=== PATIENT | male | born 1995 | race African-American/Black ===

== ENCOUNTER 2018-07-18 01:42 | Emergency (ER) | payer BC ==
[~2018-07-18] VITALS: Ht 180.3 cm; Wt 79.4 kg
[~2018-07-18 01:42] MED LIST: AMOX500C2 PO
[2018-07-18] MEDS ORDERED: PARO30TA3 (02:08)
[2018-07-18] MEDS ORDERED: LISI-556 PO (02:09)
[2018-07-18] MEDS ORDERED: LIDOCAINE 2% VISCOUS 15 ML UDC PO ONE (02:15)
[2018-07-18] MEDS ORDERED: ANTACID SUSP 30 ML UDC (MYLANTA) PO ONE (02:15)
[2018-07-18] MEDS ORDERED: fentaNYL INJECTION 100 MCG/2 ML AMP IVP ONE (02:45)
[2018-07-18] MEDS ORDERED: FAMOTIDINE 20MG/2ML IV (PEPCID) IVP ONE (02:45)
[2018-07-18 02:54] LABS: BASOPHILS % (AUTO) 0 % (0-10); EOSINOPHILS # (AUTO) 0.1 10^3/uL (0.0-0.3); EOSINOPHILS % (AUTO) 1 % (0-10); HEMATOCRIT 41 % (40-54); HEMOGLOBIN 15.2 G/DL (13.3-17.7); LYMPHOCYTES # (AUTO) 0.6 X 10^3 (1.0-4.0); LYMPHOCYTES % (AUTO) 5 % (12-44); MEAN CORPUSCULAR HEMOGLOBIN 31 PG (25-34); MEAN CORPUSCULAR HGB CONC 37 G/DL (32-36); MEAN CORPUSCULAR VOLUME 85 FL (80-99); MEAN PLATELET VOLUME 9.3 FL (7.4-10.4); MONOCYTES % (AUTO) 8 % (0-12); NEUTROPHILS # (AUTO) 9.8 X 10^3 (1.8-7.8); NEUTROPHILS % (AUTO) 85 % (42-75); PLATELET COUNT 249 10^3/uL (130-400); RED CELL DISTRIBUTION WIDTH 12.4 % (10.0-14.5); WHITE BLOOD COUNT 11.4 10^3/uL (4.3-11.0)
[2018-07-18 03:05] LABS: BILIRUBIN,URINE NEGATIVE (NEGATIVE); CLARITY,URINE CLEAR; COLOR,URINE YELLOW; GLUCOSE, URINE (UA) NEGATIVE (NEGATIVE); KETONES,URINE NEGATIVE (NEGATIVE); LEUKOCYTE ESTERASE ,URINE 1+ (NEGATIVE); NITRITE,URINE NEGATIVE (NEGATIVE); PH,URINE 6 (5-9); PROTEIN,URINE NEGATIVE (NEGATIVE); UROBILINOGEN,URINE NORMAL (NORMAL)
[2018-07-18 03:11] LABS: ALANINE AMINOTRANSFERASE 123 U/L (0-55); ALBUMIN 4.3 GM/DL (3.2-4.5); ALKALINE PHOSPHATASE 101 U/L (40-136); BILIRUBIN,TOTAL 2.2 MG/DL (0.1-1.0); BUN/CREATININE RATIO 10; CALCIUM 9.5 MG/DL (8.5-10.1); CARBON DIOXIDE 24 MMOL/L (21-32); CHLORIDE 106 MMOL/L (98-107); CREATININE SERUM 1.25 MG/DL (0.60-1.30); GFR ESTIMATED > 60; GLUCOSE 108 MG/DL (70-105); LIPASE 16 U/L (8-78); POTASSIUM 3.6 MMOL/L (3.6-5.0); SODIUM 142 MMOL/L (135-145); TOTAL PROTEIN 6.8 GM/DL (6.4-8.2)
--- NOTE | 2018-07-18 03:45 | ED Abdominal Pain ---
General Chief Complaint: Abdominal/GI Problems Stated Complaint: UPPER ABD PAIN Nursing Triage Note: pt presents to ed with complaints of medial epigastric pain since 2099. pt denies n/v. Sepsis Screen: No Definite Risk Source of Information: Patient Exam Limitations: No Limitations (JASON DORAN MD) History of Present Illness Date Seen by Provider: Jul 18, 2018 Time Seen by Provider: 01:58 Initial Comments This 23-year-old young man presents to the emergency room with rather intense epigastric pain that started around 21:00. He denies any prior episodes. However, he did have an episode of pain near the costal margin on the posterior chest about one month ago. He reports subjective fever and chills at home. He has not tried to eat or drink anything since then. He has not taken any medications. He rates his pain as 8/10. He has hypertension but denies any other health problems. He denies any drug or alcohol use. (JASON DORAN MD) Allergies and Home Medications Allergies Coded Allergies: No Known Drug Allergies (Unverified , 07/09/14) Home Medications Lisinopril 5 Mg Tablet, 5 MG PO DAILY, (Reported) Patient Home Medication List Home Medication List Reviewed: Yes (JASON DORAN MD) Review of Systems Review of Systems Constitutional: see HPI EENTM: No Symptoms Reported Respiratory: No Symptoms Reported Cardiovascular: No Symptoms Reported Gastrointestinal: See HPI Genitourinary: No Symptoms Reported Musculoskeletal: no symptoms reported Skin: no symptoms reported Psychiatric/Neurological: No Symptoms Reported Endocrine: No Symptoms Reported Hematologic/Lymphatic: No Symptoms Reported (JASON DORAN MD) Past Dovuapp-Sbkeqk-Yrpfha Hx Past Med/Social Hx: Reviewed and Corrections made (JASON DORAN MD) Patient Social History Alcohol Use: Denies Use Recreational Drug Use: No Smoking Status: Never a Smoker Recent Foreign Travel: No Contact w/Someone Who Travel: No Recent Infectious Disease Expo: No Physical Abuse: No Sexual Abuse: No Mistreated: No Fear: No (JASON DORAN MD) Immunizations Up To Date Tetanus Booster (TDap): Less than 5yrs (JASON DORAN MD) Seasonal Allergies Seasonal Allergies: No (JASON DORAN MD) Past Medical History Surgeries: Yes (dental) Eye Surgery Respiratory: No Cardiac: Yes Hypertension Neurological: Yes Headaches /Migraines Reproductive Disorders: No Sexually Transmitted Disease: No Gastrointestinal: No Musculoskeletal: No Endocrine: No Cancer: No Psychosocial: No Integumentary: No Blood Disorders: No (JASON DORAN MD) Family Medical History No Pertinent Family Hx (JASON DORAN MD) Physical Exam Vital Signs Vital Signs - First Documented 07/18/18 02:03 Temp 99.5 Pulse 93 Resp 18 B/P (MAP) 147/87 (107) Pulse Ox 98 (GLO MCFARLAND MD) Vital Signs Capillary Refill : Less Than 3 Seconds (JASON DORAN MD) Height/Weight/BMI Height: 5'11.00" Weight: 175lbs. oz. 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, no motor/sensory deficits, alert, normal mood/affect, oriented x 3 Skin: normal color, warm/dry (JASON DORAN MD) Progress/Results/Core Measures Results/Orders Lab Results Laboratory Tests Test 07/18/18 02:40 07/18/18 02:44 07/18/18 02:49 Range/Units White Blood Count 11.4 H 4.3-11.0 10^3/uL Red Blood Count 4.89 4.35-5.85 10^6/uL Hemoglobin 15.2 13.3-17.7 G/DL Hematocrit 41 40-54 % Mean Corpuscular Volume 85 80-99 FL Mean Corpuscular Hemoglobin 31 25-34 PG Mean Corpuscular Hemoglobin Concent 37 H 32-36 G/DL Red Cell Distribution Width 12.4 10.0-14.5 % Platelet Count 249 130-400 10^3/uL Mean Platelet Volume 9.3 7.4-10.4 FL Neutrophils (%) (Auto) 85 H 42-75 % Lymphocytes (%) (Auto) 5 L 12-44 % Monocytes (%) (Auto) 8 0-12 % Eosinophils (%) (Auto) 1 0-10 % Basophils (%) (Auto) 0 0-10 % Neutrophils # (Auto) 9.8 H 1.8-7.8 X 10^3 Lymphocytes # (Auto) 0.6 L 1.0-4.0 X 10^3 Monocytes # (Auto) 1.0 0.0-1.0 X 10^3 Eosinophils # (Auto) 0.1 0.0-0.3 10^3/uL Basophils # (Auto) 0.0 0.0-0.1 10^3/uL Neutrophils % (Manual) 83 % Lymphocytes % (Manual) 7 % Monocytes % (Manual) 8 % Eosinophils % (Manual) 2 % Sodium Level 142 135-145 MMOL/L Potassium Level 3.6 3.6-5.0 MMOL/L Chloride Level 106 98-107 MMOL/L Carbon Dioxide Level 24 21-32 MMOL/L Anion Gap 12 5-14 MMOL/L Blood Urea Nitrogen 13 7-18 MG/DL Creatinine 1.25 0.60-1.30 MG/DL Estimat Glomerular Filtration Rate > 60 BUN/Creatinine Ratio 10 Glucose Level 108 H 70-105 MG/DL Calcium Level 9.5 8.5-10.1 MG/DL Corrected Calcium 9.3 8.5-10.1 MG/DL Total Bilirubin 2.2 H 0.1-1.0 MG/DL Aspartate Amino Transf (AST/SGOT) 201 H 5-34 U/L Alanine Aminotransferase (ALT/SGPT) 123 H 0-55 U/L Alkaline Phosphatase 101 40-136 U/L Total Protein 6.8 6.4-8.2 GM/DL Albumin 4.3 3.2-4.5 GM/DL Lipase 16 8-78 U/L C-Reactive Protein High Sensitivity 0.49 0.00-0.50 MG/DL Urine Color YELLOW Urine Clarity CLEAR Urine pH 6 5-9 Urine Specific [place] 1.015 L 1.016-1.022 Urine Protein NEGATIVE NEGATIVE Urine Glucose (UA) NEGATIVE NEGATIVE Urine Ketones NEGATIVE NEGATIVE Urine Nitrite NEGATIVE NEGATIVE Urine Bilirubin NEGATIVE NEGATIVE Urine Urobilinogen NORMAL NORMAL MG/DL Urine Leukocyte Esterase 1+ H NEGATIVE Urine RBC (Auto) 1+ H NEGATIVE Urine RBC RARE /HPF Urine WBC 0-2 /HPF Urine Squamous Epithelial Cells 0-2 /HPF Urine Crystals NONE /LPF Urine Bacteria FEW H /HPF Urine Casts NONE /LPF Urine Mucus NEGATIVE /LPF Urine Culture Indicated NO (GLO MCFARLAND MD) My Orders Orders - GLO MCFARLAND MD Ns Iv 1000 Ml (Sodium Chloride 0.9%) (07/18/18 07:44) Ct Abdomen/Pelvis W (07/18/18 07:44) Iohexol Injection (Omnipaque 350 Mg/Ml 1 (07/18/18 08:00) Contrast Received (Contrast Received) (07/18/18 08:00) Ns (Ivpb) (Sodium Chloride 0.9% Ivpb Bag (07/18/18 08:00) Ketorolac Injection (Toradol Injection) (07/18/18 08:52) (GLO MCFARLAND MD) Medications Given in ED Current Medications Medications Dose Ordered Sig/Katina Route Start Time Stop Time Status Last Admin Dose Admin Al Hydrox/Mg Hydrox/Simethicone 30 ml ONCE ONCE PO 07/18/18 02:15 07/18/18 02:16 DC 07/18/18 02:15 30 ML Famotidine 20 mg ONCE ONCE IVP 07/18/18 02:45 07/18/18 02:46 DC 07/18/18 03:10 20 MG Fentanyl Citrate 75 mcg ONCE ONCE IVP 07/18/18 02:45 07/18/18 02:46 DC 07/18/18 03:10 75 MCG Iohexol 100 ml ONCE ONCE IV 07/18/18 08:00 07/18/18 08:01 DC 07/18/18 08:03 100 ML Lidocaine HCl 15 ml ONCE ONCE PO 07/18/18 02:15 07/18/18 02:16 DC 07/18/18 02:15 15 ML Sodium Chloride 100 ml ONCE ONCE IV 07/18/18 08:00 07/18/18 08:01 DC 07/18/18 08:03 80 ML Sodium Chloride 1,000 ml @ 0 mls/hr Q0M ONCE IV 07/18/18 07:44 07/18/18 07:45 DC 07/18/18 07:51 1,000 MLS/HR (GLO MCFARLAND MD) Vital Signs/I&O 07/18/18 02:03 Temp 99.5 Pulse 93 Resp 18 B/P (MAP) 147/87 (107) Pulse Ox 98 (GLO MCFARLAND MD) Blood Pressure Mean: 107 Progress Progress Note : Time: 03:25 Progress Note Patient was given a GI cocktail for suspected gastritis. This did not reduce his pain at all. Further workup wasn't pursued with labs and pain was treated with fentanyl. Labs revealed elevated transaminases and bilirubin. Imaging was then felt necessary. Ultrasound is not immediately available. I discussed options with the patient including CT scan now versus ultrasound at 07:00 versus an order for outpatient ultrasound. Patient elects to stay and have the ultrasound performed in 07:00. (JASON DORAN MD) Progress Note : Progress Note 0620: Seen care the patient pending ultrasound that will be done at 7 AM. Monitor patient. 0745: Ultrasound complete and does not show any acute findings per preliminary read. Patient still has a little pain. Given his abnormal labs and findings, CT scan is indicated. I have reexamined the patient and he does have mild right upper quadrant pain but not significant currently. We did discuss the results and we will go forward with CT abdomen and pelvis to rule out other intra-abdominal pathology. This was discussed with the patient who agrees. Normal saline 1 L bolus ordered as well. Monitor patient. 0909: CT was negative. Toradol 30 mg IV given. Overall doing okay. Patient does need follow- up regarding his transaminitis and right upper quadrant abdominal pain. He has no local physician and she is just moved to the area but would like to establish care. He was thinking about Dr. Ronaldo Fisher. We will send a copy of the chart over to him. He will also potentially follow-up with surgeon for evaluation if indicated. This could be arranged through Dr. Fisher's office as well. Discharged home with return precautions. Patient verbalize understanding instructions and agreement with plan. (GLO MCFARLAND MD) Diagnostic Imaging Diagonstic Imaging: Ultrasound Plain Films/CT/US/NM/MRI: abdomen Comments [facility]. [place], [place] NAME: [facility] REC#: [id number] PT STATUS: REG ER : 1995 PHYSICIAN: GLO MCFARLAND MD ADMIT DATE: 07/18/18/ER Draft Date of Exam:07/18/18 CT ABDOMEN/PELVIS W PROCEDURE: CT abdomen and pelvis with contrast. TECHNIQUE: Multiple contiguous axial images were obtained through the abdomen and pelvis after administration of intravenous contrast. INDICATION: Abdominal pain. Fever. COMPARISON: None. FINDINGS: Lung bases are clear. The liver, gallbladder, pancreas, spleen, adrenals, kidneys, collecting systems, bladder and appendix are negative. No free intraperitoneal air or fluid. No lymphadenopathy. No evidence of bowel obstruction or inflammation. No acute osseous findings. IMPRESSION: No acute CT findings in the abdomen or pelvis. Dictated on workstation # [id number] Dict: 07/18/18816 Trans: 07/18/18822 [id number] Interpreted by: HEMALATHA FRANKEL MD Electronically signed by: Diagonstic Imaging: CT Plain Films/CT/US/NM/MRI: abdomen, pelvis Comments [facility], [place] NAME: [facility] REC#: [id number] PT STATUS: REG ER : 1995 PHYSICIAN: GLO MCFARLAND MD ADMIT DATE: 07/18/18/ER Draft Date of Exam:07/18/18 CT ABDOMEN/PELVIS W PROCEDURE: CT abdomen and pelvis with contrast. TECHNIQUE: Multiple contiguous axial images were obtained through the abdomen and pelvis after administration of intravenous contrast. INDICATION: Abdominal pain. Fever. COMPARISON: None. FINDINGS: Lung bases are clear. The liver, gallbladder, pancreas, spleen, adrenals, kidneys, collecting systems, bladder and appendix are negative. No free intraperitoneal air or fluid. No lymphadenopathy. No evidence of bowel obstruction or inflammation. No acute osseous findings. IMPRESSION: No acute CT findings in the abdomen or pelvis. Dictated on workstation # [id number] Dict: 07/18/18816 Trans: 07/18/18822 [id number] Interpreted by: HEMALATHA FRANKEL MD Electronically signed by: (GLO MCFARLAND MD) Departure Impression Primary Impression: Right upper quadrant abdominal pain Additional Impression: Transaminitis Disposition: 01 HOME, SELF-CARE Condition: Stable Departure-Patient Inst. Decision time for Depature: 09:11 (GLO MCFARLAND MD) Referrals: JENNA ALEXANDER BRETT D DO KIDO, TAKAAKI MD NO,LOCAL PHYSICIAN (PCP) Primary Care Physician RONALDO FISHER MD Patient Instructions: Acute Abdomen (Belly Pain), Adult (DC), Liver Function Test Add. Discharge Instructions: All discharge instructions reviewed with patient and/or family. Voiced understanding. Your liver enzymes are elevated and this will need to be followed to ensure that they are improving over time. Follow-up with the doctor listed are of your choice for recheck and further evaluation. You may also follow up with one of the surgeons listed or of your choice for further evaluation as well. Return for worsening, fever, vomiting, weakness, breathing problems or other concerns as needed. Clear or light diet for the next 24 hours and then advance as tolerated. Take towc-mgm-vpdhjat ibuprofen 400-600 mg every 8 hours as needed for pain. You may take cugq-jpz-hkdhapl famotidine (Pepcid) 20 mg twice daily for the next 7 days and then daily thereafter as needed for stomach upset. Copy Copies To 1: RONALDO FISHER MD, JOSHUA T MD Jul 18, 2018 03:45 GLO MCFARLAND MD Jul 18, 2018 07:47
[2018-07-18 03:56] LABS: BACTERIA,URINE FEW /HPF; RBC,URINE RARE /HPF; SQUAMOUS EPITHELIAL CELL,UR 0-2 /HPF; WBC,URINE 0-2 /HPF
[2018-07-18 05:14] LABS: EOSINOPHILS % (MANUAL) 2 %; LYMPHOCYTES % (MANUAL) 7 %; MONOCYTES % (MANUAL) 8 %; NEUTROPHILS % (MANUAL) 83 %
--- NOTE | 2018-07-18 05:49 | NUR ---
PT BP 125/62. PT RESTING WITH EYES CLOSED AND LIGHTS TURNED DOWN. PT VERBALIZES NO NEW NEEDS AT THIS TIME.
[2018-07-18] MEDS ORDERED: NS IV 1000 ML 1,000 ML IV ONE (07:44)
[2018-07-18] MEDS ORDERED: NS 100 ML (IVPB) BAG IV ONE (08:00)
[2018-07-18] MEDS ORDERED: IOHEXOL 350 MG/ML 100 ML (OMNIPAQUE 350) VIAL IV ONE (08:00)
[2018-07-18] MEDS ORDERED: RECEIVED CONTRAST (Hold Metformin) IV SCH (08:00)
--- NOTE | 2018-07-18 08:19 | Diagnostic Imaging Report ---
PROCEDURE: US Gallbladder. TECHNIQUE: Multiple real-time grayscale images were over the right upper quadrant in various projections. INDICATION: Upper abdominal pain. Bowel gas limits sonographic acoustical windows. The gallbladder appeared unremarkable. There is no bile duct dilatation. The pancreas is obscured from visualization by gas. The unobstructed right kidney appeared normal however portions of its lower pole obscured from visualization. There is no ascites or fluid collection. Hepatic echotexture is somewhat heterogeneous but no identifiable liver mass. IMPRESSION: Bowel gas limits acoustical windows. No biliary abnormality, nonfocal liver with a borderline heterogeneity of its echotexture. Unobstructed right kidney obscured. Pancreas, no biliary dilatation. No ascites Dictated by: Dictated on workstation # [id number]
--- NOTE | 2018-07-18 08:23 | Diagnostic Imaging Report ---
PROCEDURE: CT abdomen and pelvis with contrast. TECHNIQUE: Multiple contiguous axial images were obtained through the abdomen and pelvis after administration of intravenous contrast. INDICATION: Abdominal pain. Fever. COMPARISON: None. FINDINGS: Lung bases are clear. The liver, gallbladder, pancreas, spleen, adrenals, kidneys, collecting systems, bladder and appendix are negative. No free intraperitoneal air or fluid. No lymphadenopathy. No evidence of bowel obstruction or inflammation. No acute osseous findings. IMPRESSION: No acute CT findings in the abdomen or pelvis. Dictated by: Dictated on workstation # [id number]
[2018-07-18] MEDS ORDERED: KETOROLAC 30 MG/ML VIAL IVP STA (08:52)
[2018-07-18 09:22] VITALS: BP 117/85
== END 2018-07-18 09:22 | disposition home or self-care (01) ==
LOC: EDUNIT# 01:42 → ER 01:46
DX: R10.13 Epigastric pain (principal); R74.0 Nonspecific elevation of levels of transaminase and lactic acid dehydrogenase [LDH]; I10 Essential (primary) hypertension; G43.909 Migraine, unspecified, not intractable, without status migrainosus
CPT/HCPCS: 36415; 74177; 76705; 80053; 81000; 83690; 85007; 85027; 86141; 96361; 96374; 96375